=== PATIENT | female | born 1975 ===

== ENCOUNTER → 2017-09-17 | Outpatient (CLI) | payer OTHER | LOC: FIMAGING 15:31 | PROVIDERS: ATTEND Family Medicine | DX: N83.202 Unspecified ovarian cyst, left side (principal); N83.201 Unspecified ovarian cyst, right side; D25.9 Leiomyoma of uterus, unspecified ==

== ENCOUNTER 2018-05-14 17:14 | Emergency (ER) | payer OTHER ==
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
[2018-05-14 20:44] VITALS: BP 142/75
== END 2018-05-14 20:44 | disposition home or self-care (01) ==
DX: R20.2 Paresthesia of skin (principal); V49.49XA Driver injured in collision with other motor vehicles in traffic accident, initial encounter; Y92.410 Unspecified street and highway as the place of occurrence of the external cause